=== PATIENT | female | born 1980 | race Caucasian/White ===

== ENCOUNTER 2019-05-18 17:53 | Inpatient (IN) | payer SELFPAY ==
[~2019-05-18] VITALS: Ht 167.6 cm; Wt 59.0 kg
[2019-05-18 18:54] LABS: BASOPHILS % 0.2 % (0.0-2.0); EOSINOPHILS % 0.5 % (0.0-5.0); HEMATOCRIT. 35.1 % (36.0-48.0); HEMOGLOBIN. 12.4 g/dL (12.0-16.0); LYMPHOCYTES % 27.5 % (20.0-50.0); MEAN CORPUSCULAR HEMOGLOBIN 32.3 pg (28.0-32.0); MEAN CORPUSCULAR VOLUME 91.5 fL (81.0-99.0); MEAN PLATELET VOLUME 7.2 fl (7.4-10.4); MONOCYTES % 7.9 % (2.0-8.0); NEUTROPHILS % 63.9 % (40.0-76.0); PLATELET 332 x1000/uL (130-400); RED BLOOD CELL COUNT 3.83 mill/uL (4.2-5.4); RED CELL DISTRIBUTION WIDTH 12.9 % (11.6-14.6)
[2019-05-18] MEDS ORDERED: LABETALOL 5MG/ML SYR 20 MG/4 ML SYRINGE IV ONE ×2 (19:00→21:15)
[2019-05-18 19:02] LABS: CHLORIDE 104 mEq/L (98-107)
[2019-05-18] MEDS ORDERED: HYDRALAZINE 20MG/ML VIAL IV ONE (22:15)
[2019-05-18] MEDS ORDERED: NITROGLYCERIN 0.4MG TABLET SL SL PRN (22:30)
[2019-05-18] MEDS ORDERED: LABETALOL 5MG/ML SYR 20 MG/4 ML SYRINGE IV PRN (22:30)
[2019-05-18] MEDS ORDERED: ACETAMINOPHEN 325MG TABLET PO PRN (22:30)
[2019-05-18] MEDS ORDERED: ONDANSETRON HCL 4MG/2ML INJ IV PRN (22:30)
[2019-05-18] MEDS ORDERED: MAGNESIUM/ALUMINUM HYDROXIDE/SIMETHICONE 30ML UDC PO PRN (22:30)
[2019-05-19 00:20] VITALS: BP 140/77
[2019-05-19] MEDS ORDERED: FERR325T6 PO (02:23)
[2019-05-19] MEDS ORDERED: FOLI-43 PO (02:23)
[2019-05-19] MEDS ORDERED: LABE100T5 PO (02:23)
[2019-05-19 04:00] VITALS: BP 122/68
[2019-05-19 08:00] VITALS: BP 136/81
[2019-05-19] MEDS ORDERED: FAMOTIDINE 20MG TABLET PO SCH (09:00)
[2019-05-19] MEDS ORDERED: LABETALOL HCL 300MG TABLET PO SCH ×2 (09:00)
[2019-05-19] MEDS ORDERED: PRENATAL VIT/FE FUMARATE/FA TABLET PO SCH (09:00)
[2019-05-19 10:27] VITALS: BP 136/81
[2019-05-20] MEDS ORDERED: METHYLDOPA 250MG TABLET PO SCH (06:00)
== END 2019-05-19 12:12 | disposition home or self-care (01) | DRG 566 ==
LOC: ER 17:53 → 5WST 22:48 → ENRESERV 23:10
PROVIDERS: ADMIT Internal Medicine; ATTEND Internal Medicine
DX: O16.1 Unspecified maternal hypertension, first trimester (principal); E87.1 Hypo-osmolality and hyponatremia; O99.281 Endocrine, nutritional and metabolic diseases complicating pregnancy, first trimester; O09.521 Supervision of elderly multigravida, first trimester; Z3A.11 11 weeks gestation of pregnancy
CPT/HCPCS: 36415; 76801; 83036; 83880; 84484; 93005; 93970; 96374; 96375; 96376; 99285; J0360; J3490

== ENCOUNTER 2019-08-31 21:24 | Observation (INO) | payer MEDICAID ==
[~2019-08-31] VITALS: Ht 154.9 cm; Wt 63.0 kg
[~2019-08-31 21:24] MED LIST: FERR325T6 PO; FOLI-43 PO
[2019-08-31] MEDS ORDERED: LABE300T3 PO (23:34)
== END 2019-08-31 23:36 | disposition home or self-care (01) ==
LOC: 8 EST LDRP 21:24
PROVIDERS: ADMIT Obstetrics & Gynecology; ATTEND Obstetrics & Gynecology
DX: O16.2 Unspecified maternal hypertension, second trimester (principal); Z3A.26 26 weeks gestation of pregnancy
CPT/HCPCS: 99281; G0378